=== PATIENT | male | born 1935 | race Caucasian/White ===

== ENCOUNTER 2017-01-03 02:41 | Inpatient (IN) | payer OTHER ==
[~2017-01-03] VITALS: Ht 162.6 cm; Wt 78.0 kg
--- NOTE | ~2017-01-03 | CATHLAB ---
[facility] [place] [address] INVASIVE PROCEDURE REPORT Name: ANDRE ROSS Room #: 213-P [facility] IN ..#: [id number] Admission: 01/03/17 Attend Phys: Fransisco Christine, Discharge: 01/07/17 Date of : 37 Date of Service: 01/15/17 0035 Report #: [id number] THIS REPORT FOR: //name// CC: Chucky Christine DATE OF SERVICE: 01/04/2017 DATE OF SERVICE: 01/04/2017. INDICATIONS: An 81-year-old male patient with known coronary artery disease, presents with chest pains and left ventricular dysfunction. PROCEDURES: 1. Left heart catheterization. 2. Left and right coronary angiography. 3. Saphenous vein graft and left internal mammary graft angiography. 4. Measurement of left ventricular end-diastolic pressures. 5. Supervision of conscious sedation. [employer] OR THEATRE MANAGER: Harris Lara M.D. BRIEF DESCRIPTION OF PROCEDURE: After informed consent was obtained, the patient was brought to the cardiac catheterization laboratory in stable condition. The patient's right groin was prepped and draped in the usual sterile manner after which lidocaine was then instilled. Utilizing a modified Seldinger technique, the right femoral artery was then accessed. Under fluoroscopic visualization using selective coronary catheters, the right and left coronaries were opacified and visualized. The left ventriculogram was likewise imaged per standard protocol with EDP being measured. Subsequent to this, the sheath was removed, hemostasis achieved. The patient tolerated the procedure well. There were no complications. FINDINGS: 1. FLUOROSCOPY: Under fluoroscopic visualization, there was evidence of calcific plaquing along the epicardial coronary arteries. There was also evidence of pacing lead as well as a prior median sternotomy with sternal wires. 2. HEMODYNAMICS: A. Aortic pressure 145/63. B. Left ventricular end diastolic pressures are 18-20. 3. RHYTHM: The patient's rhythm was sinus throughout the entire procedure. 4. ANGIOGRAPHY: This is a right coronary dominant system. A. Left main is normal origin and caliber, bifurcates left anterior descending and left circumflex free of high-grade disease. [facility] [address] [place] [address] INVASIVE PROCEDURE REPORT Name: CODYANDRE Room #: 213-P [facility] IN M.R.#: [id number] Admission: 01/03/17 Attend Phys: Fransisco Christine, Discharge: 01/07/17 Date of : 37 Date of Service: 01/15/17 0035 Report #: [id number] B. Left anterior descending is a small caliber string like vessel, which has a proximal 90% lesion and then continues on at a size of less than 1.5 mm in diameter. Sequential regions of 90-95%. C. Left circumflex is a small nondominant vessel, which has a high-grade 99-100% lesion proximally. It gives rise to two small hair like marginal branches. D. Right coronary artery is of normal origin who has diffuse proximal disease. Then, continues on to the crux of the heart where posterior descending artery originates and has moderate disease present. The vessel is small in caliber, posterior lateral branches free of high-grade disease. E. 2 occluded saphenous vein grafts are identified. F. Left internal mammary artery was imaged and was unused to the prior graft. It was widely patent. IMPRESSION: 1. Coronary artery disease, severe, 3-vessel with an occluded graft and no revascularizable areas noted. 2. Abnormal hemodynamics with mildly elevated left ventricular end-diastolic pressures. 3. Recommendations in view of these findings mandated is recommended continue optimal medical management be pursued. <ELECTRONICALLY SIGNED> By: Harris Lara MD 01/15/17 1747 0035 1249 Harris Lara MD /nt
--- NOTE | ~2017-01-03 | EKG ---
[address] [address] ELECTROCARDIOGRAM REPORT Name: RUBENANDRE AHUMADA Room #: 213-P ADM IN M.R.#: [id number] Admission: 01/03/17 Attend Phys: Fransisco Christine MD Discharge: Date of : 37 Report #: [id number] THIS REPORT FOR: //name// [facility] Test Date: 2017-01-03 Test Time: 06:51:10 Pat Name: ANDRE ROSS Department: Room: 213 P Gender: M Dural Mechanic: malick : 1935 Requested By: Ina Mack Order Number: [id number] MD: Presley Lewis Measurements Intervals [place] Rate: 60 P: DC: 103 QRS: -24 QRSD: 126 T: 101 QT: 502 QTc: 502 Interpretive Statements Atrial-paced complexes Nonspecific intraventricular conduction delay Poor R wave progression Prolonged QT interval No previous ECG available for comparison Electronically Signed On 01-03-2017 8:02:08 CDT by Presley Lewis [email or web address] <ELECTRONICALLY SIGNED> By: Presley Lewis MD, [facility] 01/03/17 0802 0651 Persley Lewis MD, [facility] /EPI
--- NOTE | ~2017-01-03 | EKG ---
[address] [address] ELECTROCARDIOGRAM REPORT Name: ANDRE ROSS Room #: 213-P ADM IN M.R.#: [id number] Admission: 01/03/17 Attend Phys: Fransisco Christine MD Discharge: Date of : 37 Report #: [id number] THIS REPORT FOR: //name// [facility] Test Date: 2017-01-06 Test Time: 07:44:37 Pat Name: ANDRE ROSS Department: Room: 213 P Gender: M Acute Dialysis Registered Nurse: KALEB : 1935 Requested By: Persley Lewis Order Number: [id number] MD: Presley Lewis Measurements Intervals [place] Rate: 60 P: [place]: 94 QRS: -32 QRSD: 112 T: 92 QT: 473 QTc: 473 Interpretive Statements Atrial-paced complexes Borderline IVCD with LAD Poor R wave progression Nonspecific intraventricular conduction delay Compared to ECG 01/03/2017 06:51:10 No significant change was found Electronically Signed On 01-06-2017 11:55:09 CDT by Prseley Lewis [email or web address] <ELECTRONICALLY SIGNED> By: Presley Lewis MD, [facility] 01/06/17 1155 0744 0744 Presley Lewis MD, [facility] /EPI
--- NOTE | ~2017-01-03 | 2DMMODE ---
[facility] [address] [place] [address] 2 D/M-MODE ECHOCARDIOGRAM Name: ANDRE ROSS Room #: 213-P [facility] IN M.R.#: [id number] Admission: 01/03/17 Attend Phys: Fransisco Christine, Discharge: Date of : 37 Date of Service: 01/03/17 1108 Report #: [id number] THIS REPORT FOR: //name// APPROVED REPORT Study performed: 01/03/2017 08:17:51 EXAM: Comprehensive 2D, Doppler, and color-flow Echocardiogram Patient Location: Bedside Room #: 213 Blood Pressure: 125/62 mmHg Other Information Study Quality: Technically Difficult Indications COPD Dyspnea CAD Echo Enhancing Agent Indication: Endocardial border delineation Agent/Amount Used: Definity 2 cc 2D Dimensions RVDd: 38.54 mm LVEF(%): 35.44 (>50%) IVSd: 10.27 (7-11mm) LVOT Diam: 13.80 (18-24mm) LVDd: 50.87 mm PWd: 10.12 (7-11mm) Ascending Ao: 26.33 (22-36mm) LVDs: 42.20 (25-40mm) Aortic Root: 29.96 mm Lua's LVEF: 35.44 % Volumes Left Atrial Volume (Systole) Single Plane 4CH: 34.37 mL Single Plane 2CH: 58.49 mL LA ESV Index: 27.00 mL/m2 Aortic Valve AoV Peak Kennedy.: 2.35 m/s AO Peak Gr.: 22.02 mmHg LVOT Max P.16 mmHg LVOT Max V: 0.74 m/s [facility] [address] [place] [address] 2 D/M-MODE ECHOCARDIOGRAM Name: ANDRE ROSS Room #: 213-[facility] IN [facility]#: [id number] Admission: 01/03/17 Attend Phys: Fransisco Christine, Discharge: Date of : 37 Date of Service: 01/03/17 1108 Report #: [id number] [id number] Vmax: 0.47 cm2 Mitral Valve E/A Ratio: 2.6 MV Decel. Time: 155.10 ms MV E Max Kennedy.: 1.08 m/s MV A Kennedy.: 0.41 m/s MV PHT: 44.98 ms IVRT: 86.51 ms Pulmonary Valve PV Peak Kennedy.: 1.04 m/s PV Peak Gr.: 4.31 mmHg Pulmonary Vein P Vein S: 0.38 m/s P Vein A: 0.11 m/s P Vein D: 0.75 m/s P Vein A Dur.: 103.8 msec P Vein S/D Ratio: 0.51 Tricuspid Valve TR Peak Kennedy.: 3.68 m/s RAP Estimate: 10.00 mmHg TR Peak Gr.: 54.03 mmHg Left Ventricle The left ventricle is normal size. There is normal left ventricular wall thickness. Left ventricular systolic function is decreased. LVEF is 35%. Right Ventricle Right ventricle is at the upper limits of normal. Right ventricular systolic function is reduced. Catheter is present in the right ventricle. Atria The left atrium size is normal. The right atrium size is normal. Aortic Valve Aortic valve is calcified. No aortic regurgitation is present. There is no aortic valvular stenosis. Mitral Valve The mitral valve is normal in structure. Mild mitral regurgitation. No evidence of mitral valve stenosis. Tricuspid Valve The tricuspid valve is normal in structure. Mild tricuspid [facility] [address] [place] [address] 2 D/M-MODE ECHOCARDIOGRAM Name: MARI ROSSERNE Room #: 213-P [facility] IN .R.#: [id number] Admission: 01/03/17 Attend Phys: Fransisco Christine, Discharge: Date of : 37 Date of Service: 01/03/17 1108 Report #: [id number] regurgitation. Pulmonic Valve The pulmonary valve is normal in structure. Mild pulmonic regurgitation. Great Vessels The aortic root is normal in size. The ascending aorta is normal in size. IVC is not visualized. <Conclusion> The left ventricle is normal size. Left ventricular systolic function is decreased. LVEF is 35%. Right ventricular systolic function is reduced. Aortic valve is calcified. Catheter is present in the right ventricle. Aortic valve is calcified. The mitral valve is normal in structure. Mild mitral regurgitation. The tricuspid valve is normal in structure. Mild tricuspid regurgitation. Mild pulmonic regurgitation. <ELECTRONICALLY SIGNED> By: Harris Lara MD 01/03/17 1108 1108 1108 Harris Lara MD /INF
[2017-01-03 04:15] VITALS: BP 125/62
[2017-01-03 05:29] LABS: INR 1.1; PROTIME 11.4 Seconds (9.3-11.4)
[2017-01-03 05:41] LABS: CHOLESTEROL 153 mg/dL (<200); HDL CHOLESTEROL 43 mg/dL (>40); LDL CHOLESTEROL 91 mg/dL (<100); TC:HDL 3.6 Ratio (Not establshd); TRIGLYCERIDE 95 mg/dL (<150); VLDL 19 mg/dL (<40)
[2017-01-03 05:46] LABS: SERUM ASSESSMENT Clear
[2017-01-03 05:47] LABS: TROPONIN-I 6.33 ng/mL (<0.04-0.07)
[2017-01-03] MEDS ORDERED: ATENOLOL 100MG100 MG PO (05:47)
[2017-01-03] MEDS ORDERED: LIPITOR 20 MG T20 M1 PO (05:47)
[2017-01-03] MEDS ORDERED: LASIX 40 MG TAB40 M2 PO (05:47)
[2017-01-03] MEDS ORDERED: GLIPIZIDE 10 MG10 MG PO (05:49)
[2017-01-03] MEDS ORDERED: NEURONTIN600 MG PO (05:49)
[2017-01-03] MEDS ORDERED: IMDUR 60 MG TAB60 M1 PO (05:49)
[2017-01-03] MEDS ORDERED: LANTUS SUBQ (05:50)
[2017-01-03] MEDS ORDERED: JANUVIA100 MG PO (05:50)
[2017-01-03] MEDS ORDERED: OMEPRAZOLE20 M1 PO (05:51)
[2017-01-03] MEDS ORDERED: METFORMIN HCL500 MG PO (05:51)
[2017-01-03] MEDS ORDERED: RANEXA500 MG PO (05:52)
[2017-01-03] MEDS ORDERED: NEURONTIN300 MG PO (05:57)
[2017-01-03 06:28] LABS: URINE BILIRUBIN NEGATIVE (Negative); URINE BLOOD 1+ (Negative); URINE COLOR YELLOW; URINE GLUCOSE-RANDOM* 2+ (Negative); URINE KETONES NEGATIVE (Negative); URINE NITRITE NEGATIVE (Negative); URINE PROTEIN (DIPSTICK) NEGATIVE (Negative); URINE UROBILINOGEN 0.2 E.U./dl (0.2-1.0)
[2017-01-03 07:04] LABS: CASTS None Seen /LPF (None Seen); CRYSTALS None Seen /LPF (None Seen); SQUAMOUS 0-3 Few /LPF (0-3); URINE RBC 0-2 Rare /HPF (0-2); URINE WBC 0-5 Rare /HPF (0-5)
[2017-01-03 07:05] LABS: BACTERIA None Seen /HPF (None Seen)
[2017-01-03 08:00] VITALS: BP 138/72
[2017-01-03 09:05] LABS: CALCIUM 9.2 mg/dL (8.5-10.1); CREATININE 1.3 mg/dL (0.7-1.3); MAGNESIUM 1.7 mg/dL (1.8-2.4); POTASSIUM 3.2 mmol/L (3.5-5.1)
[2017-01-03 10:54] LABS: HEMATOCRIT 40.8 % (42.0-52.0); HEMOGLOBIN 13.8 gm/dL (14.0-18.0); MCH 29.1 pg (26.0-34.0); MCHC 33.9 g/dL (28.0-37.0); MCV 85.8 fL (80.0-100.0); RBC 4.75 mil/uL (4.50-6.00); RDW 13.8 % (10.5-14.5); WBC 12.2 thou/uL (4.0-11.0)
[2017-01-03 12:00] VITALS: BP 151/64
[2017-01-03 16:00] VITALS: BP 159/94
[2017-01-03 17:01] LABS: MAGNESIUM 1.8 mg/dL (1.8-2.4); POTASSIUM 3.4 mmol/L (3.5-5.1)
[2017-01-03 19:56] VITALS: BP 129/56
[2017-01-03 23:19] LABS: MAGNESIUM 1.7 mg/dL (1.8-2.4); POTASSIUM 3.3 mmol/L (3.5-5.1)
[2017-01-03 23:34] VITALS: BP 129/65
[2017-01-04] VITALS (12 sets, daily range): BP systolic 106–1132; BP diastolic 48–72
[2017-01-04 03:27] LABS: HEMOGLOBIN 12.6 gm/dL (14.0-18.0); MCH 29.3 pg (26.0-34.0); MCHC 34.9 g/dL (28.0-37.0); RBC 4.28 mil/uL (4.50-6.00); RDW 13.8 % (10.5-14.5); WBC 8.9 thou/uL (4.0-11.0)
[2017-01-04 03:38] LABS: ALBUMIN 2.9 g/dL (3.4-5.0); CALCIUM 8.9 mg/dL (8.5-10.1); CREATININE 1.2 mg/dL (0.7-1.3); MAGNESIUM 1.8 mg/dL (1.8-2.4); POTASSIUM 3.5 mmol/L (3.5-5.1); TOTAL PROTEIN 6.8 g/dL (6.4-8.2)
[2017-01-04 05:09] LABS: GLYCOHEMOGLOBIN (HGB A1C) 7.5 % (4.8-5.6)
[2017-01-04 15:12] LABS: MAGNESIUM 1.9 mg/dL (1.8-2.4)
[2017-01-05] VITALS (9 sets, daily range): BP systolic 95–118; BP diastolic 43–67
[2017-01-06] VITALS (7 sets, daily range): BP systolic 113–122; BP diastolic 44–57
[2017-01-06 03:01] LABS: CALCIUM 8.6 mg/dL (8.5-10.1); CREATININE 1.3 mg/dL (0.7-1.3); POTASSIUM 3.5 mmol/L (3.5-5.1)
[2017-01-07] VITALS (7 sets, daily range): BP systolic 116–139; BP diastolic 50–71
[2017-01-07 03:02] LABS: CALCIUM 8.5 mg/dL (8.5-10.1); CREATININE 1.2 mg/dL (0.7-1.3); POTASSIUM 3.9 mmol/L (3.5-5.1)
[2017-01-07] MEDS ORDERED: CLOPIDOGREL75 MG PO (11:33)
[2017-01-07] MEDS ORDERED: FLOMAX0.4 MG PO (11:33)
[2017-01-07] MEDS ORDERED: ADULT LOW DOSE81 MG PO (11:34)
[2017-01-07] MEDS ORDERED: ATORVASTATIN CA40 MG PO (12:06)
[2017-01-07] MEDS ORDERED: LISINOPRIL10 MG PO (12:06)
== END 2017-01-07 18:07 | disposition home health service (06) | DRG 280 ==
LOC: 2N 02:41
PROVIDERS: Internal Medicine; Nurse Practitioner Family; Nurse Practitioner Gerontology
PROC: B2181ZZ Fluoroscopy of Left Internal Mammary Bypass Graft using Low Osmolar Contrast (ICD-10-PCS; principal; 2017-01-04)
PROC: B2111ZZ Fluoroscopy of Multiple Coronary Arteries using Low Osmolar Contrast (ICD-10-PCS; principal; 2017-01-04)
PROC: B2121ZZ Fluoroscopy of Single Coronary Artery Bypass Graft using Low Osmolar Contrast (ICD-10-PCS; principal; 2017-01-04)
PROC: 4A023N7 Measurement of Cardiac Sampling and Pressure, Left Heart, Percutaneous Approach (ICD-10-PCS; principal; 2017-01-04)
DX: I21.4 Non-ST elevation (NSTEMI) myocardial infarction (principal); I50.23 Acute on chronic systolic (congestive) heart failure; J44.9 Chronic obstructive pulmonary disease, unspecified; F41.9 Anxiety disorder, unspecified; K21.9 Gastro-esophageal reflux disease without esophagitis; E78.5 Hyperlipidemia, unspecified; E11.40 Type 2 diabetes mellitus with diabetic neuropathy, unspecified; I25.5 Ischemic cardiomyopathy; I11.0 Hypertensive heart disease with heart failure; I25.10 Atherosclerotic heart disease of native coronary artery without angina pectoris; Z95.5 Presence of coronary angioplasty implant and graft; Z95.1 Presence of aortocoronary bypass graft; Z88.0 Allergy status to penicillin; Z86.73 Personal history of transient ischemic attack (TIA), and cerebral infarction without residual deficits; Z90.49 Acquired absence of other specified parts of digestive tract; Z85.828 Personal history of other malignant neoplasm of skin; Z80.9 Family history of malignant neoplasm, unspecified; Z83.3 Family history of diabetes mellitus; Z82.3 Family history of stroke; Z82.49 Family history of ischemic heart disease and other diseases of the circulatory system; Z87.891 Personal history of nicotine dependence; Z79.899 Other long term (current) drug therapy; Z95.810 Presence of automatic (implantable) cardiac defibrillator; Z79.82 Long term (current) use of aspirin
CPT/HCPCS: 10081